=== PATIENT | female | born 1975 | race Caucasian/White ===

== ENCOUNTER 2020-11-25 23:03 | Inpatient (IN) | payer BC ==
[~2020-11-25] VITALS: Ht 165.1 cm; Wt 77.1 kg
[2020-11-25] MEDS: AZITHROMYCIN IV 500 MG in IV DEXTROSE 5% 250 ML IV ONE ×2 (04:30→05:00)
[2020-11-25] MEDS ORDERED: VANCOMYCIN 1G/D5W 200 ML PIGGYBACK IV ONE (23:15)
[2020-11-25] MEDS ORDERED: ONDANSETRON 4 MG/2 ML VIAL IV ONE (23:15)
[2020-11-25] MEDS ORDERED: NOREPINEPHRINE BITARTRATE 8 MG in IV NORMAL SALINE 242 ML IV PRN (23:15)
[2020-11-25] MEDS ORDERED: VANCOMYCIN IV 500 MG in IV DEXTROSE 5% 100 ML IV ONE (23:15)
[2020-11-25] MEDS ORDERED: IV NORMAL SALINE 1000 ML BAG IV ONE (23:15)
[2020-11-25] MEDS ORDERED: PIPERACILLIN SODIUM/TAZOBACTAM 3.375 G in IV DEXTROSE 5% 50 ML IV ONE (23:15)
[2020-11-25] MEDS ORDERED: ONDANSETRON 4 MG/2 ML VIAL ONE (23:25)
[2020-11-25] MEDS ORDERED: zoloft PO (23:27)
[2020-11-25] MEDS ORDERED: LOSA100T31 PO (23:27)
[2020-11-25] MEDS ORDERED: atorvastatin PO (23:27)
[2020-11-25] MEDS ORDERED: METF-440 PO (23:27)
[2020-11-25] MEDS ORDERED: EZET10TA15 PO (23:27)
[2020-11-25] MEDS ORDERED: trulicity SUBCUT (23:27)
[2020-11-25] MEDS ORDERED: carvedilol PO (23:27)
[2020-11-25] MEDS ORDERED: ASPI-612 PO (23:27)
--- NOTE | 2020-11-25 23:30 | NUR ---
Patient bib ra 100 from home, cc near syncope and weakness. Pt SBP in the field was in the 80's with bgc of 155. Pt states she has been feeling "off" sinced 11/22/20 with weakness and mild epigastric pain. Pt stated her BP has been elevated the last week. Pt said she felt weak and passed out two times today and felt worse with nausea which led her to calling for an ambulance.Pt co weakness, nausea, chest discomfort. Pt has hx [place] w/ stent placement, CVA 6 months ago w/ rt. leg weakness, and HTN.
[2020-11-25 23:39] LABS: HEMATOCRIT 36.9 % (31.2-41.9); MEAN CORPUSCULAR HEMOGLOBIN 31.4 uug (24.7-32.8); MEAN CORPUSCULAR VOLUME 92.6 fL (75.5-95.3); PLATELET COUNT (AUTO) 429 K/uL (179-408)
[2020-11-25] MEDS ORDERED: VANCOMYCIN 1000 MG VIAL ONE (23:45)
[2020-11-25] MEDS ORDERED: NOREPINEPHRINE BITARTRATE 4 MG/4 ML VIAL IV ONE (23:45)
[2020-11-25] MEDS ORDERED: AZITHROMYCIN 500MG/ D5W 250ML IVPB **ER PYXIS ONLY IV ONE (23:46)
[2020-11-25] MEDS ORDERED: VANCOMYCIN HCL 500 MG VIAL ONE (23:46)
[2020-11-25] MEDS ORDERED: PIPERACILLIN/TAZOBACTAM/D5W 50 ML IV ONE (23:46)
[2020-11-25 23:50] LABS: POTASSIUM 3.6 mmol/L (3.5-5.1)
[2020-11-26 00:02] LABS: BILIRUBIN,DIRECT 0.1 mg/dL (0.0-0.2); BILIRUBIN,TOTAL 0.5 mg/dL (0.2-1.0); TOTAL PROTEIN, SERUM 7.4 g/dL (6.4-8.2)
[2020-11-26] MEDS ORDERED: DULA1.5P SQ (00:28)
[2020-11-26] MEDS ORDERED: DICY10CA13 PO (00:28)
[2020-11-26] MEDS ORDERED: ASPI81TA31 PO (00:28)
[2020-11-26] MEDS ORDERED: TRAZ-257 PO (00:28)
[2020-11-26] MEDS ORDERED: SERT25TA PO (00:28)
[2020-11-26] MEDS ORDERED: LORA-259 PO (00:28)
[2020-11-26] MEDS ORDERED: ATOR80TA PO (00:28)
[2020-11-26] MEDS ORDERED: CARV25TA2 PO (00:28)
[2020-11-26] MEDS ORDERED: IV NS 1000 ML 1,000 ML IV ONE (00:45)
[2020-11-26] MEDS ORDERED: IV NORMAL SALINE 500 ML IV ONE (00:45)
[2020-11-26] MEDS ORDERED: ACETAMINOPHEN ES 500 MG TABLET ONE (01:23)
[2020-11-26] MEDS ORDERED: ACETAMINOPHEN ES 500 MG TABLET PO STA (01:30)
--- NOTE | 2020-11-26 01:30 | NUR ---
Pt resting in bed comfortably. Pt states she has no more nausea or abdominal pain, but still has mild 4/10 chest pain and headache and feels weak. Assisted pt. to use bedpan. NAD. VSS. Will continue to monitor.
[2020-11-26 01:38] LABS: *BILIRUBIN,URIN NEGATIVE (NEGATIVE); *BLOOD, URINE NEGATIVE (NEGATIVE); *COLOR,URINE YELLOW (YELLOW); *KETONES,URINE NEGATIVE (NEGATIVE); *UROBILINOGEN,URINE 0.2 E.U./dl (NORMAL); LEUKOCYTE ESTERASE ,URINE NEGATIVE (NEGATIVE); NITRITE, URINE NEGATIVE (NEGATIVE); PH,URINE 5.5 (5.0-8.0); UGLUCOSE NEGATIVE (NEGATIVE)
--- NOTE | 2020-11-26 01:44 | NUR ---
Called [facility] to page Dr. Robby Caputo.
[2020-11-26 01:51] LABS: *CLARITY,URINE HAZY (CLEAR); BACTERIA,URINE NONE SEEN /HPF (NONE SEEN); RBC,URINE 0-3 /HPF (0-3); SQUAMOUS EPITHELIAL CELL,UR MANY /HPF (NONE SEEN); WBC,URINE 0-3 /HPF (0-3)
--- NOTE | 2020-11-26 02:14 | NUR ---
Zofia sawant in ED - 11/26/[address] Dami scanlon/ Dr. Mata. Pt to be admitted to CCU.
--- NOTE | 2020-11-26 02:14 | NUR ---
Dr. Lomax spoke w/ Dr. Mata. Pt to be admitted to tele.
--- NOTE | 2020-11-26 02:15 | NUR ---
Zofia sawant in [facility] - 11/26/20 at 0344 by KAIRSSA Gave report to KRYSTIN Segura.
[2020-11-26] MEDS ORDERED: ONDANSETRON 4 MG/2 ML VIAL IV PRN (02:30)
[2020-11-26] MEDS ORDERED: IV NS 1000 ML 1,000 ML IV PRN (02:30)
[2020-11-26] MEDS ORDERED: ACETAMINOPHEN 325 MG TABLET PO PRN (02:30)
[2020-11-26] MEDS ORDERED: MAGNESIUM HYDROXIDE 30 ML LIQUID UDC PO PRN (02:30)
[2020-11-26] MEDS ORDERED: HYDROCODONE/APAP 5-325MG TABLET PO PRN (02:30)
[2020-11-26] MEDS ORDERED: DEXTROSE 50% 50 ML DISP.SYRIN IV PRN (02:30)
--- NOTE | 2020-11-26 03:00 | NUR ---
Pt resting in bed with eyes closed. No changes in condition. Will continue to monitor.
--- NOTE | 2020-11-26 04:00 | NUR ---
Pt sleeping. VSS. Will continue to monitor.
--- NOTE | 2020-11-26 06:05 | NUR ---
Assisted pt to use commode. Pt reported she has 6/10 chest pain with sob and nausea. PRN zofran given for nausea. Pt. declined any PRN pain medications. Will continue to monitor.
[2020-11-26] MEDS ORDERED: ONDANSETRON 4 MG/2 ML VIAL ONE (06:08)
--- NOTE | 2020-11-26 07:10 | NUR ---
Gave report to KRYSTIN La.
--- NOTE | 2020-11-26 07:45 | NUR ---
Pt sleeping with NAD noted. Attempted to call report to tele floor, assigned nurse to call back.
--- NOTE | 2020-11-26 08:35 | NUR ---
Pt trans to tele room 302, NAD noted. Assigned nurse to call ER for telehone report. Nursing human resources supervisor Jalen aware.
[2020-11-26 08:55] VITALS: BP 132/72
[2020-11-26] MEDS ORDERED: EZETIMIBE 10 MG TABLET PO SCH ×2 (09:00→21:00)
[2020-11-26] MEDS ORDERED: ASPIRIN 81 MG TAB.CHEW PO SCH (09:00)
--- NOTE | 2020-11-26 09:00 | NUR ---
[facility]AR report given to KRYSTIN Hoover via telephone.
--- NOTE | 2020-11-26 09:08 | NUR ---
obtained report from minnie at er. admitted pt dx sepsis. alert and oriented x4, on 2lpm o2 99%. no resp distress. denies sob/pain. azithromycin iv currently infusing. routine admission done. dr. khanna aware of admission with order for cardiac diet noted and carried out. belongings list done. safety measures in place. kept comfortable.
[2020-11-26] MEDS: METFORMIN HCL 500 MG TABLET PO SCH ×2 (10:12→17:02)
[2020-11-26] MEDS: SERTRALINE HCL 50 MG TABLET PO SCH ×2 (10:12→17:04)
--- NOTE | 2020-11-26 10:55 | NUR ---
received call from jessica at [facility], working on transferring pt to a contracted facility. once they get a bed, jessica will call duong humphrey for roller picker time.
[2020-11-26 11:43] VITALS: BP 125/69
[2020-11-26] MEDS: BLOOD SUGAR DIAGNOSTIC 1 EACH STRIP VI SCH ×2 (12:18→17:02)
[2020-11-26] MEDS: INSULIN REGULAR, HUMAN 300 UNIT/3 ML VIAL SQ PRN ×2 (12:20→17:02)
--- NOTE | 2020-11-26 12:20 | NUR ---
refused insulin. says she takes trulicity at home. dr. khanna is aware.
--- NOTE | 2020-11-26 13:36 | NUR ---
dr. khanna in the room to see patient.
[2020-11-26 15:44] VITALS: BP 144/82
[2020-11-26] MEDS ORDERED: CARV6.25 PO (16:27)
[2020-11-26] MEDS ORDERED: METR500T PO (16:27)
[2020-11-26] MEDS ORDERED: LEVO500T90 PO (16:27)
--- NOTE | 2020-11-26 18:11 | NUR ---
spoke with bertrand from [facility] and informed patient has a discharge order. she will call back later to confirm time when patient leaves.
--- NOTE | 2020-11-26 18:57 | NUR ---
pt for discharge. relayed discharge and follow up instructions. she expressed understanding. stated she already received alert from her pharmacy about the new medications. iv removed. belongings inventoried. obtained home medication from pharmacy and given to patient. waiting for to pick her up.
--- NOTE | 2020-11-26 19:00 | NUR ---
endorsed to stewart roman.
--- NOTE | 2020-11-26 19:27 | NUR ---
Discharged patient to home. IV access removed. ID armband removed. school lunch monitor removed. Patient wheeled to hospital lobby. Patient left hospital with spouse via private car.
[2020-11-26] MEDS ORDERED: ATORVASTATIN 40 MG TABLET PO SCH (21:00)
== END 2020-11-26 19:20 | disposition home or self-care (01) | DRG 149 ==
LOC: ER 23:05 → CCU 11-26 02:52 → TELE3 11-26 03:46
PROVIDERS: ADMIT Internal Medicine; ATTEND Internal Medicine
PROC: 05H633Z Insertion of Infusion Device into Left Subclavian Vein, Percutaneous Approach (ICD-10-PCS; principal; 2020-11-26)
PROC: B547ZZA Ultrasonography of Left Subclavian Vein, Guidance (ICD-10-PCS; 2020-11-26)
DX: H83.09 Labyrinthitis, unspecified ear (principal); I25.10 Atherosclerotic heart disease of native coronary artery without angina pectoris; I95.9 Hypotension, unspecified; E11.9 Type 2 diabetes mellitus without complications; E66.9 Obesity, unspecified; E78.5 Hyperlipidemia, unspecified; F41.9 Anxiety disorder, unspecified; Z98.61 Coronary angioplasty status; Z20.822 Contact with and (suspected) exposure to COVID-19; I10 Essential (primary) hypertension; I25.2 Old myocardial infarction; E86.0 Dehydration; K52.9 Noninfective gastroenteritis and colitis, unspecified; D72.829 Elevated white blood cell count, unspecified; F32.9 Major depressive disorder, single episode, unspecified; Z68.28 Body mass index [BMI] 28.0-28.9, adult; Z79.84 Long term (current) use of oral hypoglycemic drugs; R00.1 Bradycardia, unspecified
CPT/HCPCS: 36415; 70030-TC; 71045; 83605; 85025; 85730; 86850; 86900; 86901; 87040; 87086; 93005; 93307; A4663; A9150; G0378; J0456; J1815; J2405; J2543; J3370; J3490; J7030; J7040; J7050; J7060